=== PATIENT | male | born 1930 | race Caucasian/White ===

== ENCOUNTER 2018-08-07 00:18 | Emergency (ER) | payer OTHER, MEDICARE ==
[2018-08-07 00:46] VITALS: BMI 26.6
--- NOTE | 2018-08-07 00:55 | PDOC ---
History of Present Illness - General Chief Complaint: Injury Stated Complaint: FELL OUT OF BED Time Seen by Provider: 08/07/18 00:22 - History of Present Illness Initial Comments: This 87-year-old man with a history of dementia/hypertension/macular degeneration is brought in via ambulance from the [facility] assisted living [facility] after an apparent fall. Patient is awake but is nonverbal and is not accompanied by staff or family. EMS relays the history that the patient fell in the facility(witnessed fall) without loss of consciousness just prior to presentation. He has been acting normally and has no complaints. Medications as noted. Past History - Past Medical History Allergies/Adverse Reactions: Allergies Allergy/AdvReac Type Severity Reaction Status Date / Time No Known Allergies Allergy Unverified 08/07/18 00:20 COPD: No Dementia: Yes HTN: Yes Other medical history: MACULAR DEGENERATION - Suicide/Smoking/Psychosocial Hx Smoking History: Unknown if ever smoked Have you smoked in the past 12 months: No Information on smoking cessation initiated: No Review of Systems - Review of Systems Able to Perform ROS?: No (nonverbal;dementia) *Physical Exam - Vital Signs Last Vital Signs Temp Pulse Resp BP Pulse Ox 99 F 83 16 146/64 98 08/07/18 00:19 08/07/18 00:19 08/07/18 00:19 08/07/18 00:19 08/07/18 00:19 - Physical Exam Comments: GENERAL: Elderly man, awake but nonverbal; smiling and generally cooperative HEAD: Normal with no signs of trauma. EYES: PERRLA, EOMI, sclera anicteric, conjunctiva clear. ENT: Ears normal, nares patent, oropharynx clear without exudates. Moist mucous membranes. NECK: Normal range of motion, supple without lymphadenopathy, JVD, or masses. Nontender LUNGS: Breath sounds equal, clear to auscultation bilaterally. No wheezes, and no crackles. CHEST WALL: No tenderness/deformity/crepitus HEART:Regular rate and rhythm, normal S1 and S2 without murmur, rub or gallop. ABDOMEN:.normal bowel sounds No guarding,tenderness or rebound.No masses No distention. EXTREMITIES: Normal range of motion, no edema. No clubbing or cyanosis. No erythema, or tenderness. NEUROLOGICAL: Cranial nerves II through XII grossly intact. Normal speech. No focal neurological deficits. MUSCULOSKELETAL: Back non-tender to palpation, no CVA tenderness SKIN: Warm, Dry, normal turgor, no rashes or lesions noted. No abrasions/ lacerations noted Moderate Sedation - Procedure Monitoring Vital Signs: Procedure Monitoring Vital Signs Temperature 99 F 08/07/18 00:19 Pulse Rate 83 08/07/18 00:19 Respiratory Rate 16 08/07/18 00:19 Blood Pressure 146/64 08/07/18 00:19 O2 Sat by Pulse Oximetry (%) 98 08/07/18 00:19 Progress Note - Progress Note Progress Note: This elderly man with a history of dementia , resident of the memory unit at [facility] is brought in by ambulance for evaluation after a fall in the residence. Reportedly, the patient had no loss of consciousness and has been behaving normally. Patient is nonverbal but appears comfortable, smiling throughout exam and generally cooperative No evidence of acute injury with no specific tenderness/abrasion/laceration/ edema noted Because of the patient's advanced age and risk of subdural hematoma, noncontrast head CT performed to evaluate for acute intracranial pathology. Preliminary interpretation by Imaging block mason:, No evidence of acute intracranial pathology; no skull fracture [facility] contacted regarding transport of resident back to the facility. We were informed that there is no staff for transportation during the overnight hours. Patient will need to stay in the ER until transportation staff returns in the morning *DC/Admit/Observation/Transfer Diagnosis at time of Disposition: Status post fall Dementia Qualifiers: Dementia type: unspecified type Dementia behavioral disturbance: without behavioral disturbance Qualified Code(s): F03.90 - Unspecified dementia without behavioral disturbance - Discharge Dispostion Disposition: [facility] Condition at time of disposition: Stable - Referrals Referrals: Meir Patino MD [Primary Care Provider] - - Patient Instructions Additional Instructions: continue medications as prescribed have patient return to ER if new symptoms develop - Post Discharge Activity
[2018-08-07 06:18] VITALS: BP 151/71; PULSE 82; TEMP 97.4
== END 2018-08-07 08:48 ==
LOC: FER 00:18
DX: Z04.3 Encounter for examination and observation following other accident (principal); W06.XXXA Fall from bed, initial encounter; Y93.84 Activity, sleeping; Y92.092 Bedroom in other non-institutional residence as the place of occurrence of the external cause; F03.90 Unspecified dementia, unspecified severity, without behavioral disturbance, psychotic disturbance, mood disturbance, and anxiety; I10 Essential (primary) hypertension; H35.30 Unspecified macular degeneration
CPT/HCPCS: 70450-TC; 99281-25

== ENCOUNTER 2018-09-11 14:56 | Emergency (ER) | payer OTHER, MEDICARE ==
[2018-09-11 15:14] VITALS: TEMP 97.8; BMI 29.1
[2018-09-11] MEDS ORDERED: SODIUM CHLORIDE 500 ML IV STA (15:56)
[2018-09-11 16:47] LABS: BASO % 0.4 % (0-2.0); EOS % 2.2 % (0-4.5); HEMATOCRIT 40.7 % (35.4-49); HEMOGLOBIN 13.7 GM/dl (11.7-16.9); LYMPH % 6.6 % (8-40); MCH 30.5 pg (25.7-33.7); MCHC 33.6 g/dl (32.0-35.9); MEAN PLT VOLUME 8.8 fl (7.5-11.1); MONO % 6.7 % (3.8-10.2); NEUT % 84.1 % (42.8-82.8); PLATELET COUNT 311 K/MM3 (134-434); RBC 4.47 M/mm3 (4.00-5.60); RDW 14.2 % (11.9-15.9); WHITE BLOOD COUNT 12.1 K/mm3 (4.0-10.8)
[2018-09-11 16:58] LABS: ALBUMIN 3.8 g/dl (3.4-5.0); ALK PHOS 60 U/L (45-117); ANION GAP 12 MMOL/L (8-16); BILIRUBIN,TOTAL 1.1 mg/dl (0.2-1); BLOOD UREA NITROGEN 26 mg/dl (7-18); CALCIUM 9.1 mg/dl (8.5-10); CHLORIDE 102 mmol/L (98-107); CO2 25 mmol/L (21-32); CREATININE 1.7 mg/dl (0.55-1.3); GLUCOSE,RANDOM 95 mg/dl (74-106); POTASSIUM 4.9 mmol/L (3.5-5.1); SGOT/AST 23 U/L (15-37); SGPT/ALT 19 U/L (13-61); SODIUM 139 mmol/L (136-145); TOT PROT 6.8 g/dl (6.4-8.2)
[2018-09-11 17:02] VITALS: BP 125/42; PULSE 66
--- NOTE | 2018-09-11 17:47 | PDOC ---
Documentation entered by Teofiol Perry SCRIBE, acting as scribe for Venancio Krishnamurthy MD. Venancio Krishnamurthy MD: This documentation has been prepared by the Vicky lopez Xhesika, SCRIBE, under my direction and personally reviewed by me in its entirety. I confirm that the documentation accurately reflects all work, treatment, procedures, and medical decision making performed by me. History of Present Illness - General Chief Complaint: CVA/TIA Stated Complaint: UNRESPONSIVE FOR 30 MINUTES Time Seen by Provider: 09/11/18 14:58 History Source: Patient, Care Provider, EMS Exam Limitations: No Limitations - History of Present Illness Initial Comments: 09/11/18 16:05 The patient is a 87 year old male from [facility], with a significant past medical history of dementia, hypertension, and macular degeneration who presents to the emergency department via EMS with CVA/TIA symptoms. As per nuclear spectroscopist, the patient was unresponsive for 30 minutes this afternoon. As per nuclear spectroscopist, the patient was hanging with a resident when he was found with his head down, unresponsive to words and had no pulse. As per nuclear spectroscopist, the patient was helped back to his room and endorsed urinary incontinence. The nuclear spectroscopist took the patient to the restroom when he eventually lifted his head, stared at the nuclear spectroscopist and started smiling. As per nuclear spectroscopist, the patient has been sleeping more than usual the past 3 days, however, at his baseline the patient talks, walks, and smiles constantly. As per nuclear spectroscopist, the patient experienced these symptoms 3 times before, with his last episode 6 months ago. As per nuclear spectroscopist, the patient did not fall or hit his head. The patient is awake, smiling and denies any complaints at this time. Allergies:NKDA Past surgical history: None reported Social history: None reported PCP: Staff at [facility] 09/11/18 16:36 Physical exam: Alert, cheerful and cooperative, significant dementia is present but the patient answers questions adequately Afebrile, vital signs normal except for blood pressure of 89/56. PERRLA 4 mm, fundi benign with sharp margins and good central venous patient, ENT clear Neck supple without bruit mass or nodes Lungs clear with full breath sounds bilaterally, no wheezes rales or rhonchi No tachypnea or dyspnea CV S1 and S2 distant without murmur rub or gallop pulses full and symmetric no JVD or edema no bruits 90 and regular Abdomen nondistended. Bowel sounds normal. Soft without mass tenderness organomegaly Neurological C2 to 12 intact. Generalized weakness but no focal sensory or motor deficits. Strength is symmetric Extremities no CCE. No posterior calf swelling or tenderness Skin clear, no rash, adequate turgor but mucous membranes are dry Impression: Patient was reportedly unresponsive while sitting in a chair. This probably lasted somewhere between 10 and 20 minutes, according to his aid. S There was no fall. When he awoke he was of normal mental status. Similar episode occurred 6 months ago. Patient is asymptomatic otherwise, does not recall the event, but appears relatively dehydrated with low blood pressure. This is despite normal oral intake according to his caregiver Plan: This does not appear to be an acute neurologic event, nor an acute cardiac event. However, EKG, enzymes, routine labs, and head CT to be performed. Observation and IV fluid bolus. Further evaluation and treatment depending on results. 09/11/18 16:48 Past History - Past Medical History Allergies/Adverse Reactions: Allergies Allergy/AdvReac Type Severity Reaction Status Date / Time No Known Allergies Allergy Unverified 08/07/18 00:20 Home Medications: Ambulatory Orders Amlodipine Besylate 10 mg PO DAILY 09/11/18 Lisinopril 10 mg PO DAILY 09/11/18 Vit C/E/Zn/Coppr/Lutein/Zeaxan [Preservision Areds 2 Softgel] 1 each PO BID COPD: No Dementia: Yes HTN: Yes - Suicide/Smoking/Psychosocial Hx Smoking History: Unknown if ever smoked Have you smoked in the past 12 months: No Review of Systems - Review of Systems Able to Perform ROS?: Yes Comments:: 09/11/18 16:07 GENERAL/CONSTITUTIONAL: No fever or chills. No weakness. HEAD, EYES, EARS, NOSE AND THROAT: No change in vision. No ear pain or discharge. No sore throat. CARDIOVASCULAR: No chest pain or shortness of breath. RESPIRATORY: No cough, wheezing, or hemoptysis. GASTROINTESTINAL: No nausea, vomiting, diarrhea or constipation. GENITOURINARY: No dysuria, frequency, or change in urination. MUSCULOSKELETAL: No joint or muscle swelling or pain. No neck or back pain. SKIN: No rash NEUROLOGIC: No headache, vertigo, loss of consciousness, or change in strength/ sensation. ENDOCRINE: No increased thirst. No abnormal weight change. HEMATOLOGIC/LYMPHATIC: No anemia, easy bleeding, or history of blood clots. ALLERGIC/IMMUNOLOGIC: No hives or skin allergy. *Physical Exam - Vital Signs Last Vital Signs Temp Pulse Resp BP Pulse Ox 97.8 F 70 20 86/45 L 98 09/11/18 14:58 09/11/18 14:58 09/11/18 14:58 09/11/18 14:58 09/11/18 14:58 Critical Care Time/MDM Note - Medical Decision Making Note: 09/11/18 16:24 EKG shows normal sinus rhythm at a rate is 68/m. There is a right bundle-branch block and a left anterior hemiblock. Bifascicular block. Probable old septal infarct with Q waves in V1 and V2. No ST elevations, depressions, or T-wave inversions suggestive of acute ischemia.. No old EKG available for comparison. The patient is awake and alert cooperative and verbal. His mental status now is described as his normal self by his aide who accompanies him. Patient appears dry and the blood pressure is in the 90/60 range. Fluid challenge was initiated. 09/11/18 16:53 09/11/18 17:42 Chest x-ray is clear Labs show BUN of 27, creatinine 1.7, otherwise no significant abnormalities. Most likely the patient's symptoms are due to transient hypotension from relative hypovolemia. Occurring after eating, blood probably shunted away from the brain. After rehydration, the patient's blood pressure return to the normal range and he was more alert and animated. Although no prior EKGs available, the EKG changes appear to be chronic. Although I don't feel that a bradycardic rhythm was responsible for the patient' s symptoms, it was recommended that cardiology consultation be obtained and probably Holter monitoring. The patient's condition at discharge was good, he was mentally and physically at baseline according to his aide, who accompanied him home. He is instructed to return to the emergency room if symptoms recur, otherwise follow-up with primary physician and automobile radiator mechanic as directed *DC/Admit/Observation/Transfer Diagnosis at time of Disposition: Dehydration - Discharge Dispostion Disposition: HOME Condition at time of disposition: Improved Decision to Admit order: No - Referrals Referrals: Darius Sánchez MD [Staff Physician] - 1 week - Patient Instructions Printed Discharge Instructions: DI for Dehydration -- Adult Additional Instructions: Encourage adequate nutrition and hydration. See primary physician for follow-up 2-3 days. Recommend cardiology evaluation - Post Discharge Activity
--- NOTE | 2018-09-13 11:01 | EKG ---
Test Reason : Blood Pressure : / mmHG Vent. Rate : 068 BPM Atrial Rate : 068 BPM P-R Int : 162 ms QRS Dur : 136 ms QT Int : 426 ms P-R-T Axes : 059 -70 055 degrees QTc Int : 452 ms NORMAL SINUS RHYTHM RIGHT BUNDLE BRANCH BLOCK LEFT ANTERIOR FASCICULAR BLOCK BIFASCICULAR BLOCK MINIMAL VOLTAGE CRITERIA FOR LVH, MAY BE NORMAL VARIANT SEPTAL INFARCT , AGE UNDETERMINED ABNORMAL ECG NO PREVIOUS ECGS AVAILABLE Confirmed by ERIKA GONZALES, JODY ([id number]) on 09/13/2018 11:00:49 AM Referred By: RON YORK Confirmed By:JODY JAMES MD
== END 2018-09-11 17:31 | disposition home or self-care (01) ==
LOC: FER 14:56
PROC: 3E0337Z Introduction of Electrolytic and Water Balance Substance into Peripheral Vein, Percutaneous Approach (ICD-10-PCS; principal; 2018-09-11)
DX: E86.0 Dehydration (principal); I10 Essential (primary) hypertension; F03.90 Unspecified dementia, unspecified severity, without behavioral disturbance, psychotic disturbance, mood disturbance, and anxiety; H35.30 Unspecified macular degeneration; I45.10 Unspecified right bundle-branch block
CPT/HCPCS: 36415; 70450-TC; 71045-TC-FY; 80053; 82550; 84484; 85025; 93005; 96360; 99283-25

== ENCOUNTER 2018-10-03 03:11 | Emergency (ER) | payer OTHER, MEDICARE ==
--- NOTE | 2018-10-03 03:33 | PDOC ---
History of Present Illness - General Chief Complaint: Altered Mental Status Stated Complaint: AMS Time Seen by Provider: 10/03/18 03:27 History Source: Patient Exam Limitations: No Limitations - History of Present Illness Initial Comments: 10/03/18 03:29 This is an elderly 87-year-old male brought in by EMS for evaluation of altered mental status. Patient is from the dementia unit and was yelling so they sent him in for evaluation. Otherwise patient is without complaints. Here in the emergency room patient is calm awake alert and comfortable History is very limited due to patient's underlying dementia. Allergies: as per nursing notes Past Medical History: Hypertension and dementia Social history: Dementia and lives in a retirement unit Surgical history: None General: No fevers or chills, no weakness, no weight loss HEENT: No change in vision. No sore throat,. No ear pain CardioVascular: no chest discomfort. No shortness of breath Respiratory:No cough, or wheezing. Gastrointestinal: no nausea, vomiting, diarrhea or constipation, No rectal bleeding Genitourinary: No dysuria, hematuria, or frequency Musculoskeletal: No joint or muscle pain or swelling Neurologic: No headache, vertigo, dizziness or loss of consciousness Psychiatric: nor depression Skin: No rashes or easy bruising Endocrine: no increased thirst or abnormal weight change Allergic: no skin or latex allergy All other systems reviewed and normal Exam: General: Well-nourished well-developed individual, no acute distress HEENT: Throat: Normal, tonsils normal, no erythema or exudate Neck: Supple, no meningeal signs, no lymphadenopathy Eyes::Pupils equal reactive and round, extraocular motion intact Chest: Nontender to palpation Cardiac: S1-S2 normal, regular rate and rhythm, no murmurs rubs or gallops Respiratory: Lungs clear to auscultation bilateral Abdomen: Soft, nondistended, normal bowel sounds, there is no tenderness on palpation diffusely Extremities: Warm, dry, no cyanosis, clubbing, or edema Skin: No rashes Neuro: Alert , nonfocal exam with normal strength, normal sensation, normal reflexes, normal gait, Psych: Normal mood and affect 10/03/18 03:32 Assessment and plan: This is an 87-year-old male who comes in with the ambulance for altered mental status. Patient sent in from one of the local [facility] dementia unit. His labs and CBC, comp and urine. Past History - Past Medical History Allergies/Adverse Reactions: Allergies Allergy/AdvReac Type Severity Reaction Status Date / Time No Known Allergies Allergy Verified 10/03/18 04:16 Home Medications: Ambulatory Orders Amlodipine Besylate 10 mg PO DAILY 09/11/18 Lisinopril 10 mg PO DAILY 09/11/18 Vit C/E/Zn/Coppr/Lutein/Zeaxan [Preservision Areds 2 Softgel] 1 each PO BID COPD: No Dementia: Yes HTN: Yes - Suicide/Smoking/Psychosocial Hx Smoking History: Unknown if ever smoked Have you smoked in the past 12 months: No Hx Alcohol Use: No Drug/Substance Use Hx: No ED Treatment Course - LABORATORY CBC & Chemistry Diagram: 10/03/18 03:51 10/03/18 03:51 *DC/Admit/Observation/Transfer Diagnosis at time of Disposition: Status post fall Dementia Qualifiers: Dementia type: Alzheimer's disease Alzheimer's disease onset: unspecified onset Dementia behavioral disturbance: with behavioral disturbance Qualified Code(s): G30.9 - Alzheimer's disease, unspecified; F02.81 - Dementia in other diseases classified elsewhere with behavioral disturbance - Discharge Dispostion Disposition: HOME Condition at time of disposition: Stable Decision to Admit order: No - Referrals - Patient Instructions Additional Instructions: Return to the emergency department immediately with ANY new, persistent or worsening symptoms. Continue any medications as previously prescribed by your physician. You should follow up with your primary doctor as soon as possible regarding today's emergency department visit. . Please make sure your doctor reviews the results of your emergency evaluation. Thank you for coming to the Emergency Department today for your care. It was a pleasure to see you today. Please note that your evaluation is INCOMPLETE until you follow-up with your doctor. - Post Discharge Activity
[2018-10-03 03:34] VITALS: BMI 25.0
[2018-10-03 04:47] LABS: URINE APPEARANCE CLEAR; URINE BILIRUBIN NEGATIVE (NEGATIVE); URINE COLOR YELLOW; URINE GLUCOSE (UA) NEGATIVE (NEGATIVE); URINE KETONE NEGATIVE (NEGATIVE); URINE LEUK ESTERASE NEGATIVE (NEGATIVE); URINE NITRITE NEGATIVE (NEGATIVE); URINE PROTEIN NEGATIVE (NEGATIVE); URINE UROBILINOGEN 0.2 mg/dL (0.2-1.0)
[2018-10-03 04:50] LABS: BASO % 0.7 % (0-2.0); EOS % 7.5 % (0-4.5); HEMATOCRIT 36.2 % (35.4-49); LYMPH % 10.8 % (8-40); MCH 29.9 pg (25.7-33.7); MCHC 33.2 g/dl (32.0-35.9); MEAN PLT VOLUME 9.2 fl (7.5-11.1); MONO % 10.4 % (3.8-10.2); NEUT % 70.6 % (42.8-82.8); PLATELET COUNT 281 K/MM3 (134-434); RBC 4.02 M/mm3 (4.00-5.60); RDW 15.2 % (11.9-15.9); WHITE BLOOD COUNT 6.3 K/mm3 (4.0-10.0)
[2018-10-03 05:14] LABS: ALBUMIN 3.2 g/dl (3.4-5.0); BILIRUBIN,TOTAL 0.7 mg/dL (0.2-1); CALCIUM 8.5 mg/dL (8.5-10.1); CREATININE 1.3 mg/dL (0.55-1.3); POTASSIUM 4.6 mmol/L (3.5-5.1); TOT PROT 6.2 g/dl (6.4-8.2)
[2018-10-03 07:40] VITALS: BP 143/64; PULSE 70; TEMP 98.2
== END 2018-10-03 08:37 | disposition home or self-care (01) ==
LOC: FER 03:11
DX: F02.81 Dementia in other diseases classified elsewhere, unspecified severity, with behavioral disturbance (principal); G30.9 Alzheimer's disease, unspecified; I10 Essential (primary) hypertension
CPT/HCPCS: 36415; 70450-TC; 80053; 81003; 85025; 99282-25